=== PATIENT | male | born 1960 ===

== ENCOUNTER 2020-05-02 13:36 | Outpatient (CLI) | payer OTHER | END 2020-05-02 13:48 | disposition home or self-care (01) | LOC: SONOGRAMA 13:36 → MAMO-SONO 13:45 → SONOGRAMA 13:48 | PROVIDERS: ATTEND Podiatrist Foot Surgery | DX: M77.32 Calcaneal spur, left foot (principal); M77.31 Calcaneal spur, right foot ==